=== PATIENT | male | born 1950 | race Caucasian/White ===

== ENCOUNTER 2024-12-23 14:50 | Inpatient (IN) | payer MEDICARE, OTHER ==
[~2024-12-23] VITALS: Ht 170.2 cm; Wt 85.3 kg
[2024-12-23 14:51] VITALS: BP 142/63; TEMP 98.3
[2024-12-23 15:20] VITALS: BP 142/63; TEMP 98.3
[2024-12-23 21:00] VITALS: BP 131/70; TEMP 98.4; O2SAT 96
[2024-12-23] MEDS ORDERED: MULT-1075 PO (21:21)
[2024-12-23] MEDS ORDERED: TRIA60LO7 TP (21:22)
[2024-12-23] MEDS ORDERED: MELO5CAP PO (21:22)
[2024-12-23] MEDS ORDERED: LACO50TA2 PO (21:22)
[2024-12-23] MEDS ORDERED: ASPI-495 PO (21:22)
[2024-12-23] MEDS ORDERED: ACET-73 PO (21:22)
[2024-12-23] MEDS ORDERED: CHOL100045 PO (21:22)
[2024-12-23] MEDS ORDERED: TAMS-3 PO (21:22)
[2024-12-23] MEDS ORDERED: MUPI15CR TP (21:22)
[2024-12-23] MEDS ORDERED: VIT1CAPS27 PO (21:22)
[2024-12-24] MEDS ORDERED: MELOXICAM SUBMICRONIZED PO PRN (00:30)
[2024-12-24 07:58] VITALS: BP 145/69; TEMP 98.2; O2SAT 95
[2024-12-24] MEDS: LACOSAMIDE 50 MG TABLET PO SCH (08:15)
[2024-12-24] MEDS: ASPIRIN EC 81 MG TABLET.DR PO SCH (08:15)
[2024-12-24] MEDS: CHOLECALCIFEROL 1,000 UNIT TABLET PO SCH (08:16)
[2024-12-24] MEDS: MULTIVIT, IRON, MIN NO. 8, FA TABLET PO SCH (08:16)
[2024-12-24] MEDS: ACETAMINOPHEN 500 MG TABLET PO PRN (08:18)
[2024-12-24] MEDS ORDERED: VITE AC PO SCH (09:00)
[2024-12-24] MEDS ORDERED: MUPIROCIN 2% OINT 22 GM TUBE TP SCH (09:00)
[2024-12-24] MEDS ORDERED: LUT PO SCH (09:00)
[2024-12-24] MEDS ORDERED: VIT C PO SCH (09:00)
[2024-12-24] MEDS ORDERED: ZNOX PO SCH (09:00)
[2024-12-24] MEDS ORDERED: MUPIROCIN 2% OINT 22 GM TUBE NS SCH ×2 (09:00→11:58)
[2024-12-24] MEDS ORDERED: TAMSULOSIN HCL 0.4 MG CAP.SR.24H PO SCH (09:00)
[2024-12-24] MEDS ORDERED: COPPER PO SCH (09:00)
[2024-12-24] MEDS ORDERED: TRIAMCINOLONE ACETONIDE 0.1% 60 ML BOTTLE TP SCH (10:00)
[2024-12-24] MEDS: TRIAMCINOLONE ACET 0.1% CREAM 15 GM TUBE TP SCH (11:03)
[2024-12-24] MEDS: MELOXICAM 7.5 MG TABLET PO SCH (12:16)
[2024-12-24 15:33] VITALS: BP 126/75; TEMP 98.3; O2SAT 96
[2024-12-25 06:57] VITALS: BP 123/61; TEMP 98.2; O2SAT 97
[2024-12-25 07:04] VITALS: BP 129/63; TEMP 98.3; O2SAT 96
[2024-12-25 08:07] VITALS: BP 131/64; TEMP 98.2; O2SAT 96
[2024-12-25] MEDS: MUPIROCIN 2% OINT 22 GM TUBE NS SCH (08:20)
[2024-12-25] MEDS: BETA CAROTENE/VIT C & E/MIN TABLET PO SCH (08:21)
[2024-12-25] MEDS: MUPIROCIN 2% OINT 22 GM TUBE TP SCH (08:22)
[2024-12-25] MEDS: TAMSULOSIN HCL 0.4 MG CAP.SR.24H PO SCH (08:32)
[2024-12-25 16:42] VITALS: BP 125/65; TEMP 97.5; O2SAT 98
[2024-12-25 19:30] VITALS: BP 123/68; TEMP 98; O2SAT 97
[2024-12-25] MEDS: ATORVASTATIN 20 MG TABLET PO SCH (21:45)
[2024-12-25] MEDS: ACETAMINOPHEN/CODEINE 300-30 MG TABLET PO PRN (21:51)
[2024-12-26 06:00] VITALS: BP 126/69; TEMP 98.4; O2SAT 96
[2024-12-26 07:35] VITALS: BP 123/64; TEMP 97.7; O2SAT 97
[2024-12-26] MEDS ORDERED: TEMAZEPAM 7.5 MG CAPSULE PO PRN (09:00)
[2024-12-26] MEDS ORDERED: ZOLPIDEM 5 MG TABLET PO PRN (14:00)
[2024-12-26 16:08] VITALS: BP 118/65; TEMP 98.6; O2SAT 97
[2024-12-26 20:08] VITALS: BP 142/71; TEMP 97.2; O2SAT 97
[2024-12-26] MEDS: TEMAZEPAM 7.5 MG CAPSULE PO PRN (21:17)
[2024-12-27 06:00] VITALS: BP 109/36; TEMP 98.1; O2SAT 98
[2024-12-27 07:59] LABS: PLATELET COUNT (AUTO) 251 K/uL (152-348); RED BLOOD CELL COUNT(AUTO) 4.53 MIL/uL (4.06-5.63); RED CELL DISTRIBUTION WIDTH 13.3 % (12.1-16.2); WHITE BLOOD COUNT (AUTO) 8.0 K/uL (3.6-10.2)
[2024-12-27 08:00] VITALS: BP 107/61; TEMP 97.6; O2SAT 98
[2024-12-27 08:20] LABS: CREATININE 0.6 mg/dL (0.6-1.3); SODIUM SERUM 142 mmol/L (136-145); UREA NITROGEN, BLOOD 21 mg/dL (7-18)
[2024-12-27 15:59] VITALS: BP 106/65; TEMP 97.8; O2SAT 97
[2024-12-27 20:23] VITALS: BP 121/69; TEMP 98.3; O2SAT 98
[2024-12-27] MEDS ORDERED: DOCUSATE SODIUM 100 MG CAPSULE PO SCH (21:45)
[2024-12-27] MEDS: ZOLPIDEM 5 MG TABLET PO PRN (22:23)
[2024-12-27] MEDS: SENNOSIDES/DOCUSATE SODIUM TABLET PO SCH (22:23)
[2024-12-27 23:07] VITALS: BP 131/71; TEMP 97.6; O2SAT 98
[2024-12-28 06:42] VITALS: BP 119/59; TEMP 98.5; O2SAT 98
[2024-12-28 08:00] VITALS: BP 123/57; TEMP 98.1; O2SAT 96
[2024-12-28] MEDS: MUPIROCIN 2% OINT 22 GM TUBE TP SCH (08:51)
[2024-12-28] MEDS: LACTULOSE 20 G/30 ML LIQUID UDC PO ONE (13:27)
[2024-12-28] MEDS: SORBITOL 70% SOLUTION 30 ML UDC PO ONE (13:27)
[2024-12-28 16:02] VITALS: BP 117/69; TEMP 98.2; O2SAT 97
[2024-12-28 20:00] VITALS: BP 145/63; TEMP 97.8; O2SAT 98
[2024-12-28] MEDS: MAGNESIUM HYDROXIDE 30 ML LIQUID UDC PO PRN (20:30)
[2024-12-28] MEDS: BISACODYL 10 MG SUPP.RECT RC ONE (22:54)
[2024-12-29 05:00] VITALS: BP 96/48; TEMP 98.4; O2SAT 97
[2024-12-29 08:04] VITALS: BP 109/51; TEMP 97.7; O2SAT 98
[2024-12-29 16:19] VITALS: BP 110/57; TEMP 97.4; O2SAT 98
[2024-12-29 20:02] VITALS: BP 108/69; TEMP 98.1; O2SAT 96
[2024-12-29 21:55] LABS: *BILIRUBIN,URIN NEGATIVE (NEGATIVE); *BLOOD, URINE 3+ (NEGATIVE); *CLARITY,URINE CLEAR (CLEAR); *COLOR,URINE YELLOW (YELLOW); *KETONES,URINE NEGATIVE (NEGATIVE); *PROTEIN,URINE 1+ (NEGATIVE); *UROBILINOGEN,URINE 0.2 E.U./dl (NORMAL); LEUKOCYTE ESTERASE ,URINE TRACE (NEGATIVE); NITRITE, URINE NEGATIVE (NEGATIVE); UGLUCOSE NEGATIVE (NEGATIVE)
[2024-12-29 22:02] LABS: CALCIUM OXALATE CRYSTALS,UR FEW /HPF (NONE SEEN); SQUAMOUS EPITHELIAL CELL,UR FEW /HPF (NONE SEEN)
[2024-12-30 06:47] VITALS: BP 103/46; TEMP 97.9; O2SAT 96
[2024-12-30 07:40] LABS: PLATELET COUNT (AUTO) 255 K/uL (152-348); RED BLOOD CELL COUNT(AUTO) 4.47 MIL/uL (4.06-5.63); RED CELL DISTRIBUTION WIDTH 13.6 % (12.1-16.2); WHITE BLOOD COUNT (AUTO) 9.1 K/uL (3.6-10.2)
[2024-12-30 08:00] VITALS: BP 123/67; TEMP 98.1; O2SAT 97
[2024-12-30 16:26] VITALS: BP 101/46; TEMP 98; O2SAT 95
[2024-12-30 19:40] VITALS: BP 106/62; TEMP 98.1; O2SAT 96
[2024-12-31] MEDS: MECLIZINE HCL 25 MG TABLET PO PRN (06:25)
[2024-12-31 06:43] VITALS: BP 124/51; TEMP 97.6; O2SAT 98
[2024-12-31 08:00] VITALS: BP 109/55; TEMP 97.8; O2SAT 97
[2024-12-31 16:00] VITALS: BP 108/73; TEMP 97.2; O2SAT 97
[2024-12-31] MEDS ORDERED: LIDOCAINE 5% PATCH TD SCH ×2 (16:45→16:55)
[2024-12-31 20:00] VITALS: BP 124/57; TEMP 98.2; O2SAT 96
[2025-01-01 08:08] VITALS: BP_SYST 120; BP_SYST 121; BP_DIAS 72; TEMP 97.6; O2SAT 98; O2SAT 99
[2025-01-01] MEDS: LIDOCAINE 5% PATCH TD SCH (09:09)
[2025-01-01 16:29] VITALS: BP 130/73; TEMP 97.7; O2SAT 98
[2025-01-01 21:26] VITALS: BP 134/66; TEMP 98; O2SAT 96
[2025-01-02 06:03] VITALS: BP 114/69; TEMP 98; O2SAT 97
[2025-01-02 07:48] LABS: PLATELET COUNT (AUTO) 240 K/uL (152-348); RED BLOOD CELL COUNT(AUTO) 4.32 MIL/uL (4.06-5.63); RED CELL DISTRIBUTION WIDTH 13.8 % (12.1-16.2); WHITE BLOOD COUNT (AUTO) 9.0 K/uL (3.6-10.2)
[2025-01-02 07:55] VITALS: BP 131/61; TEMP 97.9; O2SAT 97
[2025-01-02 08:05] LABS: ASPARTATE AMINOTRANSFERASE 19 U/L (15-37); CREATININE 0.5 mg/dL (0.6-1.3); SODIUM SERUM 141 mmol/L (136-145); TOTAL PROTEIN, SERUM 6.3 g/dL (6.4-8.2); UREA NITROGEN, BLOOD 16 mg/dL (7-18)
[2025-01-02 16:07] VITALS: BP 102/63; TEMP 98; O2SAT 96
[2025-01-02 20:44] VITALS: BP 128/74; TEMP 98; O2SAT 97
[2025-01-03 06:29] VITALS: BP 114/52; TEMP 98.1; O2SAT 98
[2025-01-03 07:52] VITALS: BP 137/71; TEMP 98.9; O2SAT 99
[2025-01-03 15:55] VITALS: BP 141/66; TEMP 98.9; O2SAT 98
[2025-01-03 20:07] VITALS: BP 111/59; TEMP 98.3; O2SAT 97
[2025-01-04 06:03] VITALS: BP 128/56; TEMP 97.9; O2SAT 98
[2025-01-04 08:00] VITALS: BP 120/56; TEMP 97.8; O2SAT 98
[2025-01-04] MEDS: FLEET ENEMA 133 ML BOTTLE RC ONE (13:18)
[2025-01-04 16:01] VITALS: BP 116/72; TEMP 98.4; O2SAT 96
[2025-01-04 20:00] VITALS: BP 122/74; TEMP 97.9; O2SAT 96
[2025-01-05 07:09] VITALS: BP 127/74; TEMP 98; O2SAT 96
[2025-01-05 08:00] VITALS: BP 109/63; TEMP 98.3; O2SAT 98
[2025-01-05] MEDS: FLEET ENEMA 133 ML BOTTLE RC ONE ×2 (15:58→19:54)
[2025-01-05 16:00] VITALS: BP 105/46; TEMP 98.6; O2SAT 98
[2025-01-05 20:00] VITALS: BP 117/56; TEMP 98.3; O2SAT 97
[2025-01-06 06:15] VITALS: BP 122/63; TEMP 97.9; O2SAT 95
[2025-01-06 07:30] VITALS: BP 115/56; O2SAT 98
[2025-01-06] MEDS: FLEET ENEMA 133 ML BOTTLE RC ONE (10:18)
[2025-01-06] MEDS ORDERED: CHOL10005 PO (11:03)
[2025-01-06] MEDS ORDERED: MUPI22OI2 (11:03)
[2025-01-06] MEDS ORDERED: BETA10003 PO (11:03)
[2025-01-06] MEDS ORDERED: ZOLP10TA2 PO (11:03)
[2025-01-06] MEDS ORDERED: SENN-211 PO ×2 (11:03→11:08)
[2025-01-06] MEDS ORDERED: ATOR20TA PO ×3 (11:10→11:21)
[2025-01-06] MEDS ORDERED: CHOL100062 PO (11:21)
[2025-01-06] MEDS ORDERED: ASPI-618 PO (11:21)
[2025-01-06] MEDS ORDERED: TAMS-3 PO (11:21)
[2025-01-06] MEDS ORDERED: LACO50TA2 PO (11:21)
[2025-01-06] MEDS ORDERED: BETA1TAB19 PO (11:21)
[2025-01-06] MEDS ORDERED: MELO-105 PO (11:21)
[2025-01-06] MEDS ORDERED: LIDO30AD10 TD (11:21)
[2025-01-06] MEDS ORDERED: SENN1TAB92 PO (11:21)
[2025-01-06 19:43] VITALS: BP 133/66; TEMP 98.1; O2SAT 97
== END 2025-01-06 21:30 | disposition home health service (06) | DRG 56 ==
PROVIDERS: ADMIT Physical Medicine & Rehabilitation Pain Medicine; ATTEND Physical Medicine & Rehabilitation Pain Medicine
DX: I69.354 Hemiplegia and hemiparesis following cerebral infarction affecting left non-dominant side (principal); G93.41 Metabolic encephalopathy; N39.0 Urinary tract infection, site not specified; E78.5 Hyperlipidemia, unspecified; G40.909 Epilepsy, unspecified, not intractable, without status epilepticus; I69.398 Other sequelae of cerebral infarction; I69.392 Facial weakness following cerebral infarction; G47.00 Insomnia, unspecified; Z74.09 Other reduced mobility; R53.1 Weakness; R33.9 Retention of urine, unspecified; T81.31XD Disruption of external operation (surgical) wound, not elsewhere classified, subsequent encounter; Y93.9 Activity, unspecified; Y92.89 Other specified places as the place of occurrence of the external cause; M20.41 Other hammer toe(s) (acquired), right foot; M20.11 Hallux valgus (acquired), right foot; Z88.1 Allergy status to other antibiotic agents; Z88.8 Allergy status to other drugs, medicaments and biological substances; R26.89 Other abnormalities of gait and mobility; L08.9 Local infection of the skin and subcutaneous tissue, unspecified
CPT/HCPCS: 36415; 70450; 73630; 83735; 84100; 85025; 87086; 97535-GO-CO; A4663; A9150; J8597